=== PATIENT | female | born 1955 | race Caucasian/White ===

== ENCOUNTER → 2017-08-25 | Outpatient (CLI) | payer MEDICARE, BC ==
[~2017-08-25] MED LIST: CIMZIA200 MG SC; CIMZIA200 MG/ML SC; CLARITHROMYCIN500 MG PO; CYCLOBENZAPRINE10 M1 PO; LEVOFLOXACIN 5500 MG PO; LIDODERM1 EACH TP; LORATADINE 10MG10 M1 PO; LYRICA 100 MG100 MG PO; METHOTREXATE2.5 M1 PO; NORCO1 TAB PO; SERTRALINE 100100 MG PO; VICODIN 5/500 T1 TAB PO; VOLTAREN100 GM TP
--- NOTE | 2017-08-25 09:58 | RADIOLOGY REPORT PS360 ---
KNEE-4 OR 5 VIEWS-LT HISTORY: LEFT KNEE PAIN ORDERING PHYSICIAN: Anthony Pate MD PATIENT AGE: 62 years COMPARISON: 10/04/2012 FINDINGS: There are severe tricompartmental osteoarthritic changes of the left knee. There is an old proximal tibial fracture with mild chronic depression of the medial tibial plateau and mild varus angulation of the tibia. Previously noted bone plate has been removed. No acute fracture or dislocation. No destructive process. There is a small knee joint effusion and suprapatellar region IMPRESSION: 1. Osteoarthritis with small suprapatellar effusion. 2. Posttraumatic changes, prior ORIF proximal tibia with removal of the hardware
[2017-08-25 10:21] LABS: HEMOGLOBIN 14.3 g/dL (12.2-16.2); LYMPH # 2.5 K/mm3 (0.7-4.5); LYMPH % 27.2 % (10-50.0)
[2017-08-25 11:57] LABS: BUN 10 mg/dL (7-18); GFR (ESTIMATED) 63 ML/MIN (59-)
== END ==
LOC: RAD 08:29 → LAB 08:29
PROVIDERS: Orthopaedic Surgery
DX: M06.00 Rheumatoid arthritis without rheumatoid factor, unspecified site (principal); N28.9 Disorder of kidney and ureter, unspecified; Z79.899 Other long term (current) drug therapy

== ENCOUNTER → 2017-09-07 | Outpatient (CLI) | payer MEDICARE, BC ==
--- NOTE | 2017-09-13 06:59 | RADIOLOGY REPORT PS360 ---
MRI-LOW EXT ANY JOINT W/O-LT HISTORY: Left knee pain medially with instability, prior fracture with ORIF and removal of bone plate POST TRAUMATIC OSTEOARTHRITIS OF LEFT KNEE ORDERING PHYSICIAN: Anthony Pate MD PATIENT AGE: 62 years COMPARISON: Radiograph of 08/25/2017 TECHNIQUE: Standard multiplanar multiecho sequences are performed without contrast. FINDINGS: The cruciate ligaments are intact. The collateral ligaments, patellar tendon, and quadriceps tendon also appear intact. The medial meniscus show scattered increased T2 signal but without evidence of meniscal tear. The anterior horn of the lateral meniscus appears intact. Complex T2 signal involves the posterior horn of the lateral meniscus where there is a suspected bucket handle type meniscal tear. There are severe osteoarthritic changes of all 3 compartments with small knee joint effusion. There are old posttraumatic changes of the central aspect and medial aspect of the proximal tibia with artifact from metal shavings from previous hardware removal. Extensive osteophyte formation involves the medial and lateral compartment and patella. There is irregularity and thinning of the patellar cartilage. There is a small knee joint effusion. IMPRESSION: 1. Old proximal tibia fracture with removal of hardware with metallic artifact. 2. Tricompartmental osteoarthritic change with knee joint effusion and prominent osteophyte formation. 3. Abnormal appearance of the posterior horn of the lateral meniscus with suspected bucket handle type tear.
== END ==
LOC: RAD 13:25
DX: M17.32 Unilateral post-traumatic osteoarthritis, left knee (principal)